=== PATIENT | female | born 1960 | race Caucasian/White ===

== ENCOUNTER 2019-05-03 11:05 | Emergency (ER) | payer OTHER ==
[~2019-05-03] VITALS: Ht 162.6 cm; Wt 65.1 kg
--- NOTE | 2019-05-03 11:36 | NUR ---
PT HERE WITH C/O FACIAL BRUISING S/P FALL ON FRIDAY. DENIES LOC, N/V AND BLOOD THINNERS.
--- NOTE | 2019-05-03 11:44 | NUR ---
PT TO CT.
--- NOTE | 2019-05-03 12:01 | NUR ---
PT BACK FROM CT.
--- NOTE | 2019-05-03 12:34 | NUR ---
Patient/Caregiver given discharge instructions and they have confirmed that they understand the instructions. Patient ambulatory with steady gait.
[2019-05-03 12:35] VITALS: BP 168/96
== END 2019-05-03 12:36 | disposition home or self-care (01) ==
LOC: ED 12:30
DX: S00.83XA Contusion of other part of head, initial encounter (principal); S00.12XA Contusion of left eyelid and periocular area, initial encounter; I10 Essential (primary) hypertension; E78.00 Pure hypercholesterolemia, unspecified; W01.0XXA Fall on same level from slipping, tripping and stumbling without subsequent striking against object, initial encounter; Y93.89 Activity, other specified; Y92.009 Unspecified place in unspecified non-institutional (private) residence as the place of occurrence of the external cause; Y99.8 Other external cause status
CPT/HCPCS: 70450; 70486; 99285

== ENCOUNTER 2019-11-02 16:39 | Emergency (ER) | payer OTHER ==
[~2019-11-02] VITALS: Ht 162.6 cm; Wt 59.7 kg
[~2019-11-02 16:39] MED LIST: EZET10TA70 PO; IBANDRONATE PO; LEVO150T5 PO; LISI-167 PO; MONT10TA11 PO; ROSU40TA PO; VENL75TA2 PO
--- NOTE | 2019-11-02 17:39 | NUR ---
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
[2019-11-02] MEDS ORDERED: SODIUM CHLORIDE 0.9% 1,000ML IVBOLUS ONE ×2 (18:30→19:30)
[2019-11-02] MEDS ORDERED: SODIUM CHLORIDE FLUSH 10ML SYR IVF ONE (18:30)
[2019-11-02] MEDS ORDERED: MAALOX/HYOSCYAMINE/LIDOCAINE 45 ML BTL PO ONE (18:30)
[2019-11-02] MEDS ORDERED: MAALOX/HYOSCYAMINE/LIDOCAINE 45 ML BTL ONE (18:46)
[2019-11-02 18:54] LABS: BASOPHILS # (AUTO) 0.06 x10^3/uL (0-0.1); BASOPHILS % (AUTO) 1 % (0-1); EOSINOPHILS # (AUTO) 0.02 x10^3/uL (0-0.4); EOSINOPHILS % (AUTO) 0 % (1-7); LYMPHOCYTES % (AUTO) 10 % (22-44); MD NO; MEAN CORPUSCULAR HEMOGLOBIN 32.4 pg (27.0-34.8); MEAN CORPUSCULAR HGB CONC 32.7 g/dL (32.4-35.8); MEAN PLATELET VOLUME 9.3 fL (7.4-10.4); MONOCYTES # (AUTO) 0.51 x10^3/uL (0.2-0.8); MONOCYTES % (AUTO) 4 % (2-9); NEUTROPHILS # (AUTO) 10.27 x10^3/uL (1.8-6.8); NEUTROPHILS % (AUTO) 85 % (42-75); PLATELET COUNT 289 x10^3/uL (130-400); RED BLOOD COUNT 3.84 x10^6/uL (3.82-5.3); RED CELL DISTRIBUTION WIDTH 12.7 % (9.6-15.2)
[2019-11-02 18:56] LABS: ALBUMIN 3.7 g/dL (3.4-5.0); ANION GAP 8 mmol/L (5-15); CALCIUM 9.3 mg/dL (8.5-10.1); CHLORIDE 109 mmol/L (98-107); CREATININE 1.03 mg/dL (0.55-1.02)
[2019-11-02 19:01] LABS: ALKALINE PHOSPHATASE 91 U/L (45-117); BILIRUBIN,TOTAL 0.3 mg/dL (0.2-1.0); TOTAL PROTEIN 7.6 g/dL (6.4-8.2); TROPONIN I < 0.015 ng/mL (0.000-0.045)
[2019-11-02 19:05] LABS: ALANINE AMINOTRANSFERASE 68 U/L (12-78)
--- NOTE | 2019-11-02 19:06 | NUR ---
report to grace blankenship
[2019-11-02 19:18] LABS: MICROSCOPIC INDICATED
--- NOTE | 2019-11-02 19:32 | NUR ---
Pt ambulated to restroom and back to room independetly, steady gait, no further requests at this time, VSS except for HR 117-125, fluids administered per eMAR, will continue to monitor
--- NOTE | 2019-11-02 19:50 | NUR ---
Fluids complete at this time, pt HR noted to be in 120s still, pt denies any symptoms and states she does not want to be admitted. New order for D-dimer at this time
[2019-11-02 21:06] VITALS: BP 143/86
[2019-11-02] MEDS ORDERED: METOPROLOL 1 MG/ML, 5ML ONE (21:20)
[2019-11-02] MEDS ORDERED: METOPROLOL 1 MG/ML, 5ML IVPush ONE (21:30)
== END 2019-11-02 21:56 | disposition home or self-care (01) ==
LOC: ED 19:38
DX: K21.9 Gastro-esophageal reflux disease without esophagitis (principal); R00.0 Tachycardia, unspecified; E05.90 Thyrotoxicosis, unspecified without thyrotoxic crisis or storm; R07.9 Chest pain, unspecified; I10 Essential (primary) hypertension; E78.5 Hyperlipidemia, unspecified; E78.00 Pure hypercholesterolemia, unspecified; Z90.49 Acquired absence of other specified parts of digestive tract
CPT/HCPCS: 36415; 71045; 80053; 81001; 83690; 84484; 85025; 85379; 87086; 93005; 96361; 96374; 99285; J7030

== ENCOUNTER 2019-11-29 08:26 | Outpatient (CLI) | payer OTHER | END 2019-11-29 23:59 | disposition home or self-care (01) | LOC: CARD 08:26 | PROVIDERS: ATTEND Nurse Practitioner Family | DX: R56.9 Unspecified convulsions (principal) | CPT/HCPCS: 95819 ==

== ENCOUNTER 2020-02-10 13:58 | Emergency (ER) | payer OTHER ==
[~2020-02-10] VITALS: Ht 162.6 cm; Wt 64.0 kg
[2020-02-10] MEDS ORDERED: MAALOX/HYOSCYAMINE/LIDOCAINE 45 ML BTL PO ONE (14:30)
[2020-02-10 14:35] LABS: BASOPHILS % (AUTO) 0 % (0-1); EOSINOPHILS % (AUTO) 0 % (1-7); LYMPHOCYTES % (AUTO) 17 % (22-44); MEAN CORPUSCULAR HEMOGLOBIN 30.9 pg (27.0-34.8); MEAN CORPUSCULAR HGB CONC 33.3 g/dL (32.4-35.8); MEAN PLATELET VOLUME 8.7 fL (7.4-10.4); MONOCYTES % (AUTO) 6 % (2-9); NEUTROPHILS % (AUTO) 76 % (42-75); PLATELET COUNT 350 x10^3/uL (130-400); RED CELL DISTRIBUTION WIDTH 12.9 % (9.6-15.2)
[2020-02-10 14:51] LABS: MD NO
[2020-02-10 15:11] LABS: ALANINE AMINOTRANSFERASE 29 U/L (12-78); ALKALINE PHOSPHATASE 75 U/L (45-117); ANION GAP 4 mmol/L (5-15); BILIRUBIN,TOTAL 0.3 mg/dL (0.2-1.0); CALCIUM 9.4 mg/dL (8.5-10.1); CHLORIDE 109 mmol/L (98-107); CREATININE 1.18 mg/dL (0.55-1.02); TOTAL PROTEIN 7.7 g/dL (6.4-8.2); TROPONIN I < 0.015 ng/mL (0.000-0.045)
--- NOTE | 2020-02-10 18:06 | NUR ---
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
--- NOTE | 2020-02-10 18:14 | NUR ---
DR MIGUELANGEL STODDARD AT BS FOR EXAM
--- NOTE | 2020-02-10 18:34 | NUR ---
NO GI COCKTAIL IN OMNICELL; CALLED PHARMACY FOR MEDICATION.
--- NOTE | 2020-02-10 18:46 | NUR ---
PT A&OX4, RESP EVEN & UNLABORED, SPEECH CLEAR, SKIN WNL. REPORTS GERD SX X 3-4 DAYS, RADIATING UP CHEST. TAKES OMEPRAZOLE Q HS.
[2020-02-10] MEDS ORDERED: OMEP40CA42 PO (18:52)
[2020-02-10] MEDS ORDERED: IBAN150T15 PO (18:56)
[2020-02-10] MEDS ORDERED: MONT10TA11 PO (18:56)
[2020-02-10] MEDS ORDERED: SUCR1TAB PO (18:56)
[2020-02-10 18:57] VITALS: BP 113/69
--- NOTE | 2020-02-10 19:01 | NUR ---
GI COCKTAIL RECEIVED FROM PHARMACY. MEDICATION GIVEN PER EMAR.
== END 2020-02-10 20:06 | disposition home or self-care (01) ==
LOC: ED 19:55
DX: K21.9 Gastro-esophageal reflux disease without esophagitis (principal); R00.0 Tachycardia, unspecified; R10.13 Epigastric pain; R19.7 Diarrhea, unspecified; I10 Essential (primary) hypertension; E78.5 Hyperlipidemia, unspecified; E05.90 Thyrotoxicosis, unspecified without thyrotoxic crisis or storm; Z90.49 Acquired absence of other specified parts of digestive tract
CPT/HCPCS: 36415; 71045; 80053; 84484; 85025; 93005; 99285